=== PATIENT | male | born 1990 | race Caucasian/White ===

== ENCOUNTER 2016-10-24 00:02 | Emergency (ER) | payer SELFPAY ==
[~2016-10-24] VITALS: Ht 175.3 cm; Wt 123.9 kg
--- OUTSIDE RECORDS SUMMARY | 2016-10-24 00:06 | XMS REPORT | Referral Summary ---
Author Organization Unknown Address Unknown Phone Unavailable Care Team Providers Care Shingle Cutter Name Role Phone No PCP, States PCP [phone] Encounter [facility] [id number] Date(s): 07/07/14 - 07/07/14 [address] [place], [place]ui, Family [address] [place] [id number] Discharge Diagnosis: Pharyngitis Discharge Diagnosis: Carbuncle Discharge Disposition: Home or Self Care Attending Physician: Bienvenido Palomo MD Admitting Physician: Bienvenido Palomo MD Vital Signs Most recent to 1 oldest [Reference Range]: Temperature Tympanic 37.2 degC [36.6-38.1 degC] (07/07/14 4:14 PM) Peripheral Pulse 60 bpm Rate [60-100 bpm] (07/07/14 4:14 PM) Blood Pressure 128/89 mmHg [90-140/60-90 mmHg] (07/07/14 4:14 PM) Problem List Condition Effective Dates Status Health Status Informant Tobacco Active patient user(Confirmed) Allergies, Adverse Reactions, Alerts No Known Allergies Medications cephalexin 500 mg oral tablet 1 tabs, Oral, QID, X 10 days, # 40 tabs, 0 Refill(s), Pharmacy: [facility] [id number], 1 tabs Oral QID,x10 days Start Date: 07/07/14 Stop Date: 07/17/14 Status: Ordered Results No data available for this section Immunizations No data available for this section Procedures No data available for this section Social History Social History Type Response Smoking Status Former smoker; Type: Cigarettes; Tobacco use per day: Pack Assessment and Plan Extracted from: Title: Office Visit Note Author: Bienvenido Palomo MD Date: 07/07/14 Assessment/Plan Carbuncle Pharyngitis Orders: cephalexin, 1 tabs, Oral, QID, X 10 days, # 40 tabs, 0 Refill(s), Pharmacy: [facility] [id number], 1 tabs Oral QID,x10 days Treat empirically with cephalexin which would cover both strep and hopefully a skin organism that might be the cause of carbuncle. I advised if this does not resolve with antibiotics, he should return for possible incision and drainage or even excisional biopsy. Test symptomatic management and contagiousness. Follow-up 2-3 weeks if the skin lesion is not improved and otherwise when necessary.
[2016-10-24] MEDS ORDERED: SODIUM CHLORIDE FLUSH 3 ML SYR IV ONE (00:10)
[2016-10-24] MEDS ORDERED: SODIUM CHLORIDE FLUSH 10 ML SYR IV PRN (00:10)
--- NOTE | 2016-10-24 00:20 | NUR ---
INFORMED PT NEED FOR URINE SPECIMEN- PT UNABLE TO VOID AT THIS TIME
--- NOTE | 2016-10-24 00:21 | NUR ---
PT IS HARD OF HEARING
--- NOTE | 2016-10-24 00:23 | NUR ---
TYLENOL/CODIENE TABS = 300/30
[2016-10-24 00:33] LABS: BASOPHILS % (AUTO) 0 % (0-2); EOSINOPHILS # (AUTO) 0.2 10^3uL; EOSINOPHILS % (AUTO) 3 % (0-4); LYMPHOCYTES # (AUTO) 1.8 X10^3; MEAN CORPUSCULAR HEMOGLOBIN 30.7 PG (26.0-34.0); MEAN CORPUSCULAR HGB CONC 33.9 g/dL (31.0-37.0); MEAN CORPUSCULAR VOLUME 91 FL (80-100); MEAN PLATELET VOLUME 9.9 FL (6.0-9.5); MONOCYTES # (AUTO) 0.3 X10^3; MONOCYTES % (AUTO) 6 % (3-11); NEUTROPHILS # (AUTO) 2.4 X10^3; NEUTROPHILS % (AUTO) 52 % (51-67); PLATELET COUNT 232 10^3uL (150-450); WHITE BLOOD COUNT 4.59 10^3uL (4.0-11.0)
--- NOTE | 2016-10-24 00:42 | NUR ---
PATIENT ENDORSES "TINGLING FEELING ALL OVER BODY"
--- NOTE | 2016-10-24 00:45 | NUR ---
THIS RN SPOKE WITH POISON CONTROL. RECOMMENDATIONS RECEIVED FOR TYLENOL, SALICILYATE, ETOH AND URINE DRUG SCREEN LABS. RECOMMENDED TO DRAW TYLENOL 4 HOURS AFTER INGESTION. RECOMMENDED TO MONITOR FOR 4-6 HOURS POST INGESTION FOR SIGNS OF CONVEYOR ATTENDANT DEPRESSION. WILL RELAY RECOMMENDATIONS TO PHYSICIAN.
[2016-10-24 00:46] LABS: ALBUMIN 4.9 g/dL (3.4-5.0); ALKALINE PHOSPHATASE 50 U/L (38-126); ANION GAP 14.9 MEQ/L (3-15); BUN/CREATININE RATIO 9 (10-20); TOTAL PROTEIN 8.3 g/dL (6.4-8.5)
[2016-10-24 01:12] LABS: BILIRUBIN,URINE Negative (Negative); CLARITY,URINE Clear; COLOR,URINE Yellow; GLUCOSE, URINE (UA) Negative (Negative); LEUKOCYTE ESTERASE ,URINE Negative (Negative); PH,URINE 5.5 (5.0 - 8.0); UROBILINOGEN,URINE 0.2 mg/dL (0.2-1.0)
[2016-10-24 01:23] LABS: AMPHETAMINE SCREEN, URINE Negative (Negative); CANNABINOID SCREEN, URINE Negative (Negative); METHAMPHETAMINE SCREEN URINE S NEGATIVE (NEGATIVE); OPIATE SCREEN URINE Positive (Negative); PROPOXYPHENE STAT NEGATIVE (NEGATIVE)
[2016-10-24 01:50] VITALS: BP 113/83
== END 2016-10-24 01:46 | disposition home or self-care (01) ==
LOC: ED 00:05
DX: T40.2X2A Poisoning by other opioids, intentional self-harm, initial encounter (principal); T39.1X2A Poisoning by 4-Aminophenol derivatives, intentional self-harm, initial encounter; R53.83 Other fatigue; F11.10 Opioid abuse, uncomplicated; Y92.009 Unspecified place in unspecified non-institutional (private) residence as the place of occurrence of the external cause
CPT/HCPCS: 36415; 80053; 80307; 80320; 80329; 81003; 84443; 85025; 85610; 96360; 99283; J7030